=== PATIENT | female | born 1990 | race Caucasian/White ===

== ENCOUNTER 2017-02-25 21:39 | Inpatient (IN) | payer BC ==
[~2017-02-25] VITALS: Ht 172.7 cm; Wt 88.5 kg
[2017-02-25] MEDS ORDERED: LACTATED RINGER'S 1000ML 1,000 ML IV PRN (22:01)
[2017-02-25] MEDS ORDERED: LACTATED RINGER'S 1000ML 1,000 ML IV SCH (22:01)
[2017-02-25] MEDS ORDERED: PRENTAB26 PO (22:07)
[2017-02-25 22:08] VITALS: Ht 172.7 cm; Wt 88.5 kg
[2017-02-25 22:26] LABS: HEMATOCRIT 39.2 % (37-47); HEMOGLOBIN 13.9 g/dL (12.0-16.0); MEAN CELL VOLUME 88.3 fL (80-100); MEAN CORPUSCULAR HEMOGLOBIN 31.3 pg (25-34); MEAN CORPUSCULAR HGB CONC 35.5 g/dl (32-36); MEAN PLATELET VOLUME 11.2 fL (7.4-10.4); PLATELET COUNT 177 K/uL (130-400); RED CELL DISTRIBUTION WIDTH CV 13.2 % (11.5-14.5); RED CELL DISTRIBUTION WIDTH SD 42.6 fL (36.4-46.3); WHITE BLOOD COUNT 13.15 K/uL (4.8-10.8)
[2017-02-25 22:45] LABS: ALBUMIN 2.9 gm/dl (3.4-5.0); ALT/SGPT 20 U/L (12-78); AST/SGOT 22 U/L (15-37); BLOOD UREA NITROGEN 7 mg/dl (7-18); CALCIUM 8.8 mg/dl (8.5-10.1); CARBON DIOXIDE 20 mmol/L (21-32); GLUCOSE 102 mg/dl (70-99); POTASSIUM 3.4 mmol/L (3.5-5.1); SODIUM 137 mmol/L (136-145)
[2017-02-25 22:47] LABS: ALKALINE PHOSPHATASE 158 U/L (45-117); TOTAL PROTEIN 6.8 gm/dl (6.4-8.2)
[2017-02-25] MEDS ORDERED: BUPIVACAINE 0.25% 30 ML VIAL ONE (23:09)
[2017-02-25] MEDS ORDERED: FENTANYL CITRATE INJ 50 MCG/1 ML 2 ML VIAL ONE (23:09)
[2017-02-25] MEDS ORDERED: EpHEDrine SULFATE INJ 50 MG/ML AMP ONE (23:09)
[2017-02-25] MEDS ORDERED: FENTANYL 2MCG/ML ROPIV 1.25MG/ML 100ML BAG EPI ONE (23:10)
[2017-02-26] MEDS ORDERED: NALOXONE HCL INJ 1 MG in SODIUM CHLORIDE 0.9% 1000ML 1,000 ML IV PRN (00:12)
[2017-02-26] MEDS ORDERED: LACTATED RINGER'S 1000ML 500 ML IV PRN (00:12)
[2017-02-26] MEDS ORDERED: NALOXONE HCL INJ 0.4 MG/1 ML VIAL/CARP IV PRN (00:15)
[2017-02-26] MEDS ORDERED: DiphenhydrAMINE HCL 50 MG/ML VIAL IV PRN (00:15)
[2017-02-26] MEDS ORDERED: EpHEDrine SULFATE INJ 50 MG/ML AMP IV PRN (00:15)
[2017-02-26] MEDS ORDERED: NALBUPHINE HCL INJ 10 MG/ML AMP IV PRN (00:15)
[2017-02-26] MEDS ORDERED: ONDANSETRON INJ 2 MG/ML 2 ML VIAL IV PRN (00:15)
[2017-02-26] MEDS: FENTANYL 2MCG/ML ROPIV 1.25MG/ML 100ML BAG EPI PRN ×2 (03:09→05:39)
[2017-02-26] MEDS ORDERED: OXYTOCIN 30 UNITS/500ML NSS IV ONE (04:19)
[2017-02-26] MEDS ORDERED: OXYTOCIN 30 UNITS/500ML NSS IV PRN (07:00)
[2017-02-26] MEDS ORDERED: LANOLIN OINT EXT PRN (07:00)
[2017-02-26] MEDS ORDERED: MEASLES, MUMPS & RUBELLA VIRUS VIAL SQ. ONE (07:00)
[2017-02-26] MEDS ORDERED: BENZOCAINE 20% AER SPR 82.5 GM CAN EXT PRN (07:00)
[2017-02-26] MEDS ORDERED: SUPERCREAM 0.870 % 15GM JAR EXT PRN (07:00)
[2017-02-26] MEDS ORDERED: ACETAMINOPHEN 325 MG TAB PO PRN (07:00)
[2017-02-26] MEDS ORDERED: DIPHTHERIA/TETANUS/PERTUSSIS 0.5 ML SYR/VIAL IM. ONE (07:00)
--- NOTE | 2017-02-26 07:27 | DELIVERY SUMMARY ---
DATE OF OPERATION: 02/26/2017 DATE OF DELIVERY: 02/26/2017 TIME OF DELIVERY OF BABY: 06:11 a.m. TIME OF DELIVERY OF PLACENTA: 06:18 a.m. DETAILS OF DELIVERY: The patient was found to be fully dilated and desired to push. She pushed for about 1-1/2 hours and the head was over perineum with a tight hymenal ring band and patient was exhausted. After verbal consent was obtained, small right medial lateral episiotomy was opened and then the head was delivered without difficulty. Then shoulders were delivered with minimal traction. Baby was handed off to the mother where mouth and nose were suctioned. Cord was clamped x2 and cut at 1 minute delay and cord blood was obtained. The perineum and vagina were checked for lacerations. There was only small right medial lateral episiotomy which was opened earlier. No other lacerations were found and it was repaired with 2-0 Vicryl in a running locked fashion. Excellent hemostasis was achieved. The placenta was found to be in the vagina and delivered spontaneously intact and complete. Uterus was explored and found to be empty. Lower segment was cleared off all clots and debris. Uterine massage was done. EBL was 400. Rectal exam was done. Good external sphincter tone was noted and no sutures were found. Mom and baby tolerated the procedure well. Sponge, lap, needle and instrument counts were correct x2. Baby was a viable male . Apgars 8/9, weight is pending. No complications happened and I was present during whole procedure. I attest to the content of the Intraoperative Record and any orders documented therein. Any exception s are noted below.
--- NOTE | 2017-02-26 08:24 | Anesthesia Procedure Note ---
Anesthesia Epidural Removal Nt Date & Time Feb 26, 2017 at 08:23 Vital Signs Pain Intensity: 0.0 Notes Mental Status: alert / awake / arousable, participated in evaluation Nausea / Vomiting: adequately controlled Pain: adequately controlled Airway Patency, RR, SpO2: stable & adequate BP & HR: stable & adequate Hydration State: stable & adequate Neuraxial Anesthesia: was administered Anesthetic Complications: no major complications apparent, pt satisfied with anesthetic care Epidural: removed without complications, with tip intact
[2017-02-26 09:05] VITALS: BP 118/79; PULSE 82; TEMP 37.7; O2SAT 99
[2017-02-26] MEDS: FERROUS SULFATE 325 MG TAB PO SCH (09:28)
[2017-02-26] MEDS: PRENATAL VITAMIN TAB PO SCH (09:28)
[2017-02-26] MEDS: DOCUSATE SODIUM 100 MG CAP PO SCH ×2 (09:28→21:52)
[2017-02-26] MEDS: IBUPROFEN 600 MG TAB PO PRN ×2 (09:29→21:41)
[2017-02-26 12:15] VITALS: BP 114/69; PULSE 102; TEMP 36.8; O2SAT 96
[2017-02-26 16:00] VITALS: BP 121/84; PULSE 82; TEMP 36.5
[2017-02-26 19:30] VITALS: BP 118/76; PULSE 95; TEMP 36.7
[2017-02-26 23:45] VITALS: BP 130/86; PULSE 86; TEMP 36.5
[2017-02-27 04:00] VITALS: BP 130/82; PULSE 80; TEMP 36.7
[2017-02-27 07:20] VITALS: BP 116/70; PULSE 77; TEMP 36.7
[2017-02-27] MEDS: DOCUSATE SODIUM 100 MG CAP PO SCH ×2 (08:17→20:27)
[2017-02-27] MEDS: PRENATAL VITAMIN TAB PO SCH (08:17)
[2017-02-27] MEDS: FERROUS SULFATE 325 MG TAB PO SCH (08:17)
[2017-02-27 08:20] LABS: HEMOGLOBIN 10.1 g/dL (12.0-16.0)
--- NOTE | 2017-02-27 09:21 | OB/GYN Progress Note ---
[employer] Progress Note Date of Service Feb 27, 2017. Subjective conversation w/ patient, physical exam Ambulation: ambulating normally Voiding: no voiding problems Passing Gas: Yes Diet Tolerance: Regular Diet Feeding Type: Breast Feeding Objective Vital Signs Date Time Temp Pulse Resp B/P (MAP) Pulse Ox O2 Delivery O2 Flow Rate FiO2 02/27/17 07:20 36.7 77 18 116/70 (85) Room Air 02/27/17 07:20 Room Air 02/27/17 04:00 36.7 80 18 130/82 (98) Room Air 02/26/17 23:45 Room Air 02/26/17 23:45 36.5 86 18 130/86 (101) Room Air 02/26/17 19:30 Room Air 02/26/17 19:30 36.7 95 20 118/76 (90) Room Air 02/26/17 16:00 36.5 82 22 121/84 (96) 02/26/17 12:15 36.8 102 20 114/69 (84) 96 Room Air Physical Exam General Appearance: WELL-APPEARING, NO APPARENT DISTRESS Fundus: Firm Extremities: non-tender, normal inspection, no pedal edema Laboratory Results Last 24 Hours Test 02/27/17 08:08 Hemoglobin 10.1 g/dL Hematocrit 30.0 % Assessment and Plan Post- Day Number: 1 Continue Routine Care: tent d/c in AM
[2017-02-27] MEDS: IBUPROFEN 600 MG TAB PO PRN (10:51)
[2017-02-27 15:50] VITALS: BP 121/81; PULSE 97; TEMP 37.1; O2SAT 98
[2017-02-27] MEDS ORDERED: BISACODYL 5 MG TABEC PO SCH (20:00)
[2017-02-28] VITALS: BP 116/66; PULSE 79; TEMP 36.7
[2017-02-28] MEDS ORDERED: BISACODYL 10 MG SUPP PR PRN (07:00)
[2017-02-28 08:11] LABS: HEMATOCRIT 31.5 % (37-47); HEMOGLOBIN 10.8 g/dL (12.0-16.0); MEAN CELL VOLUME 90.5 fL (80-100); MEAN CORPUSCULAR HGB CONC 34.3 g/dl (32-36); PLATELET COUNT 195 K/uL (130-400); RED CELL DISTRIBUTION WIDTH CV 13.6 % (11.5-14.5); RED CELL DISTRIBUTION WIDTH SD 45.1 fL (36.4-46.3); WHITE BLOOD COUNT 11.98 K/uL (4.8-10.8)
[2017-02-28 08:30] VITALS: BP 120/80; PULSE 98; TEMP 36.6
[2017-02-28] MEDS: DOCUSATE SODIUM 100 MG CAP PO SCH (08:36)
[2017-02-28] MEDS: PRENATAL VITAMIN TAB PO SCH (08:36)
[2017-02-28] MEDS: FERROUS SULFATE 325 MG TAB PO SCH (08:36)
--- NOTE | 2017-02-28 09:41 | OB/GYN Progress Note ---
[employer] Progress Note Date of Service Feb 28, 2017. Subjective conversation w/ patient, physical exam Ambulation: ambulating normally Voiding: no voiding problems Passing Gas: Yes Diet Tolerance: Regular Diet Lochia: Moderate Review of Systems Constitutional: No fever, No chills, No sweats, No weight loss, No weakness, No fatigue, No problem reported Respiratory: No cough, No sputum, No wheezing, No shortness of breath, No dyspnea on exertion, No dyspnea at rest, No hemoptysis, No problem reported Cardiac: No chest pain, No orthopnea, No PND, No edema, No claudication, No palpitations, No problem reported Breast: No see HPI, No breast lump, No change in shape, No nipple discharge, No breast pain, No problem reported Abdomen: No pain, No nausea, No vomiting, No diarrhea, No constipation, No GI bleeding, No problem reported Female : No see HPI, No dysuria, No urinary frequency, No hematuria, No incontinence, No abnormal vaginal bleeding, No vaginal discharge, No problem reported Objective Vital Signs Date Time Temp Pulse Resp B/P (MAP) Pulse Ox O2 Delivery O2 Flow Rate FiO2 02/28/17 00:00 Room Air 02/28/17 00:00 36.7 79 18 116/66 (83) 02/27/17 15:50 98 Room Air 02/27/17 15:50 37.1 97 16 121/81 (94) 98 Room Air Physical Exam General Appearance: WELL-APPEARING, WD/WN, NO APPARENT DISTRESS Respiratory/Chest: chest non-tender, lungs clear, normal breath sounds Cardiovascular: regular rate, rhythm, no edema, no gallop Abdomen: normal bowel sounds, non tender, soft Fundus: Firm Incision Description: Clean, Dry & Intact Extremities: normal range of motion, non-tender, normal inspection Laboratory Results Last 24 Hours Test 02/28/17 07:49 White Blood Count 11.98 K/uL Red Blood Count 3.48 M/uL Hemoglobin 10.8 g/dL Hematocrit 31.5 % Mean Corpuscular Volume 90.5 fL Mean Corpuscular Hemoglobin 31.0 pg Mean Corpuscular Hemoglobin Concent 34.3 g/dl RDW Standard Deviation 45.1 fL RDW Coefficient of Variation 13.6 % Platelet Count 195 K/uL Mean Platelet Volume 11.0 fL Assessment and Plan Post- Day Number: 2 Continue Routine Care: PPD #2 pt doing well no complaints disch home with instructions
[2017-02-28] MEDS ORDERED: FRRS300 PO (09:42)
[2017-02-28] MEDS ORDERED: MTR600X PO (09:42)
[2017-02-28] MEDS ORDERED: CLC100 PO (09:42)
--- NOTE | 2017-02-28 09:43 | Discharge Instructions ---
Discharge Instructions Date of Service Feb 28, 2017. Admission Reason for Admission: Check Labor Discharge Discharge Diagnosis / Problem: Discharge Goals Goal(s): Routine recovery after delivery Activity Recommendations Activity Limitations: as noted below ACTIVITY RECOMMENDATIONS: * Gradual return to full activity over the next 2-3 weeks. * No lifting - nothing heavier than baby over the next 2-3 weeks. * Do not engage in vigorous exercise, sexual activity or sports until cleared by your physician. * Do not drive or operate any motorized equipment until cleared by your physician. * You may shower/bathe daily. BREAST CARE: If you are not breast feeding: * Wear a supportive bra 24 hours a day for one to two weeks. * Avoid stimulating your breasts and nipples as much as possible during the first few weeks after delivery. * When taking a shower, have the warm water hit your back, not breasts. * When your breasts feel full, apply ice packs. Usually three to four times a day helps ease the discomfort. * Take a mild pain medication (Tylenol/Motrin) when you are uncomfortable. If breast feeding: * Use breast milk to lubricate nipples. Lansinoh cream may be used for sore nipples. You do not need to remove cream prior to breast feeding. If using a different brand of cream, check the label for directions regarding removal of cream prior to nursing. * Wear a supportive bra. * If having problems with breasts or breast feeding, call a curriculum consultant or your health care provider. EPISIOTOMY CARE: After delivery, if you have an episiotomy (stitches), the following steps will ease discomfort and aid healing. * For the first 24 hours after delivery, place ice packs next to your episiotomy to help reduce swelling. * After the first 24 hour-period, sitz baths, either portable or in the tub, are suggested. A shower with a shower arm sprayed over the episiotomy may be comforting. * Geraldine care should be done after each voiding and bowel movement. Squirt warm water from a plastic bottle over the perineum (region of the body between the anus and urinary opening) and pat dry. * Use Dermoplast to ease discomfort. Shake container. [place] directly over the episiotomy. * Place a Tucks on a clean sanitary pad next to your episiotomy. OVER THE COUNTER MEDICATION: * For discomfort or pain, you may use Acetaminophen (Tylenol), Ibuprofen (Advil ), or Naproxen (Aleve) following the package directions. * For constipation you may use Colace following the package directions. SPECIAL CARE INSTRUCTIONS: When you are discharged from the hospital, it is important for you to follow the instructions listed below: * During the first week at home, you should be able to care for yourself and your baby. In addition, the usual light household activities are encouraged. * Limit your activities to the way you feel. Do not try to clean the house or move furniture. Be sensible. * If you actively engage in sports and have done so up until the time of your delivery, you may resume these activities as soon as you feel able. This may take up to one month or even longer. Use good judgment. * Continue to take your vitamins for at least six weeks after the of your baby. * Your diet need not be limited unless you were on a special diet before your delivery. Breast-feeding mothers need around 2500 calories per day and at least 64-80 ounces of fluid per day (8 to 10 glasses). * You should eat foods from the four major food groups. Crash diets or fad diets are to be avoided. Eating lean meats, fresh fruits and vegetables, low-fat dairy products, high fiber foods and a regular exercise program, will help you get back to your pre- weight without putting your health at risk. * Constipation is sometimes a problem after delivery. Take a mild laxative as needed. If breast feeding, Milk of Magnesia is acceptable to use. You may use a suppository or Fleets enema if no episiotomy. * A daily shower or tub bath is suggested. Be sure to thoroughly and gently dry the perineum. * A bloody vaginal discharge will usually continue until around four weeks post . A small amount of bleeding may continue for as long as six weeks. Vaginal discharge changes from the bright red bleeding after delivery to pink then brownish and finally yellowish-pink before becoming white and disappearing. * Bleeding may increase with activity. Your first period may come in 4-8 weeks. If you are breast feeding, your period may be delayed even longer. * [place] (sex) can begin whenever both you and your partner feel comfortable and do not have any form of genital infection. It is recommended that you wait until after your return appointment and discuss with your physician. If you have questions, please talk to your health care practitioner. A condom should be used to prevent infection and . * Foreplay, gentle intercourse and lubrication is very important the first several times to prevent pain. A water-based lubricant such as K-Y jelly or Astroglide may be used. * Tampons may be used six weeks after delivery. * Douching should be avoided for 6 weeks after delivery. * If you have RH negative blood and your baby is RH positive, you will receive RHOGAM by injection prior to discharge. The nurse will give you a card to keep with you that has the date and place that you received RHOGAM after delivery. * During your care, you had a Rubella screen done to check for the presence of rubella antibodies in your blood. If your test was negative, you will receive a Rubella vaccine prior to discharge. This vaccine may cause a fever, soreness at the injection site and flu-like symptoms. If these symptoms persist, notify your health care practitioner. is not advised for three months after a Rubella vaccine. There is a higher chance of having a baby with defects if conceived within three months of getting the vaccine. * If you were discharged 24 hours from delivery or before 48 hours: Visiting nurses will come to your home 48 hours after discharge to assess you and your baby. The visiting nurse will meet with you while you are in the hospital to arrange a time and get directions to your home. * Verbalizes understanding of car seat law as reviewed with patient nursing. * Car Seat hand-out given and reviewed with patient by nursing. * Shaken baby information reviewed with patient by nursing. Call you doctor if: * Heavy bleeding (saturating several pads an hour) or passing clots the size of your fist. * A fever >101 degrees F (38.3 degrees C) on two occasions four hours apart and/or chills. * Unusual pain in the pelvic or vaginal areas. * "Baby Blues" lasting longer than two weeks. If you have any questions or concerns, call your health care practitioner at . FOLLOW-UP VISIT: * Please call the office at to schedule a 6 week examination. It is important you keep this appointment. * It is important for you to make arrangements for either yearly or twice yearly check-ups thereafter. . Current Hospital Diet Patient's current hospital diet: Regular OB Diet Discharge Diet Recommended Diet: Regular Diet Pending Studies Studies pending at discharge: no Medical Emergencies . Who to Call and When: Medical Emergencies: If at any time you feel your situation is an emergency, please call 911 immediately. . Non-Emergent Contact Non-Emergency issues call your: Specialist . . "Provider Documentation" section prepared by Feliciano Reza. . VTE Core Measure Inpt VTE Proph given/why not?: Treatment not indicated
[2017-02-28 14:40] VITALS: BP_DIAS 80; PULSE 98; TEMP 36.6
== END 2017-02-28 14:45 | disposition home or self-care (01) | DRG 775 ==
LOC: C.LD 21:39 → C.OPB 21:39 → C.LD 22:15 → C.OBG 02-26 09:09
PROVIDERS: ADMIT Obstetrics & Gynecology; ATTEND Obstetrics & Gynecology
PROC: 0W8NXZZ Division of Female Perineum, External Approach (ICD-10-PCS; principal; 2017-02-26)
PROC: 10E0XZZ Delivery of Products of Conception, External Approach (ICD-10-PCS; principal; 2017-02-26)
DX: O75.81 Maternal exhaustion complicating labor and delivery (principal); Z3A.39 39 weeks gestation of pregnancy; Z37.0 Single live birth

== ENCOUNTER 2019-11-16 11:02 | Inpatient (IN) ==
[2019-11-16] MEDS ORDERED: miSOPROStoL 50 MCG TAB PO ONE (12:05)
[2019-11-16] MEDS ORDERED: OXYTOCIN 30 UNITS/500 ML BAG IV PRN ×2 (12:05→21:02)
[2019-11-16 12:26] LABS: Hematocrit (blood only) 37.2 % (37-47); Hemoglobin 12.3 g/dL (12.0-16.0); Mean Corpuscular Hemoglobin 28.3 pg (25-34); Mean Corpuscular Volume 85.7 fL (80-100); Mean Platelet Volume 11.4 fL (7.4-10.4); Platelet Count 177 K/uL (130-400); RDW Coefficient of Variation 15.8 % (11.5-14.5); RDW Standard Deviation 49.6 fL (36.4-46.3); Red Blood Count 4.34 M/uL (4.2-5.4); White Blood Count 8.71 K/uL (4.8-10.8)
[2019-11-16 12:27] LABS: Mean Corpuscular Hgb Conc 33.1 g/dL (32-36)
[2019-11-16] MEDS ORDERED: DINOPROSTONE 10 MG INSERT PV ONE (13:15)
[2019-11-16] MEDS ORDERED: ACETAMINOPHEN 325 MG TAB PO STA (15:57)
[2019-11-16] MEDS: LACTATED RINGER'S 1,000 ML IV PRN ×2 (18:04→18:05)
[2019-11-16] MEDS ORDERED: ePHEDrine sulfate 50 MG/ML AMP ONE (19:19)
[2019-11-16] MEDS ORDERED: fentaNYL 2MCG/ML ROPIV 1.25MG/ML 100 ML BAG EPI ONE (19:20)
[2019-11-16] MEDS ORDERED: BUPIVACAINE 0.25% 30 ML VIAL ONE (19:20)
[2019-11-16] MEDS ORDERED: fentaNYL citrate 100 MCG/2 ML VIAL ONE (19:20)
[2019-11-16] MEDS ORDERED: NALOXONE HCL 0.4 MG/1 ML VIAL/CARP IV PRN (19:26)
[2019-11-16] MEDS ORDERED: DiphenhydrAMINE HCL 50 MG/ML VIAL IV PRN (19:26)
[2019-11-16] MEDS ORDERED: ONDANSETRON INJ 2 MG/ML 2 ML VIAL IV PRN (19:26)
[2019-11-16] MEDS ORDERED: NALOXONE HCL 1 MG in SODIUM CHLORIDE 0.9% 1000ML 1,000 ML IV PRN (19:26)
[2019-11-16] MEDS ORDERED: PROMETHAZINE HCL 25 MG in SODIUM CHLORIDE 0.9% 50 ML IV PRN (19:26)
[2019-11-16] MEDS ORDERED: ePHEDrine sulfate 50 MG/ML AMP IV PRN (19:26)
[2019-11-16] MEDS ORDERED: fentaNYL 2MCG/ML ROPIV 1.25MG/ML 100 ML BAG EPI PRN (19:26)
--- NOTE | 2019-11-16 19:26 | Anesthesiology Consultation ---
Date of Service November 16, 2019 Assessment & Plan ASA ASA2 Proposed Anesthesia Anesthesia Type: Labor Epidural Risk / Benefits Reviewed With: PT / POA / Parent / Guardian, Accepts Plan and Informed Consent Obtained History Height/Weight Height: 5 ft 8 in Weight: 90.265 kg Allergies Allergy/AdvReac Type Severity Reaction Status Date / Time No Known Allergies Allergy Unverified 02/25/17 22:08 Medications Home Medications Medication Instructions Recorded Confirmed Last Taken prenat.vits,eugenio,swi-yujt-rsikj 1 tab PO DAILY 11/16/19 11/16/19 11/16/19 [ Vitamin] 0800 Active Medications Generic Name Dose Route Start Last Admin Trade Name Freq PRN Reason Stop Dose Admin Lactated Ringer's 1,000 mls @ 125 mls/hr 11/16/19 12:05 11/16/19 18:05 Lr IV 11/18/19 12:04 125 mls/hr .Q8H PRN Administration L&D Protocol Protocol Ropivacaine 100 ml 11/16/19 19:26 11/16/19 19:58 Fentanyl 2mcg/Ml Ropiv 1.25mg/Ml 100 Ml Bag EPI 11/17/19 19:25 100 ml PRN PRN Administration Pain R/T Labor Protocol Exercise / Class Metabolic Activity II 4-5 Yardwork/Stairs/Walk up hill Past Surgical History Surgical History (Updated 11/16/19 @ 11:52 by Amada Velasquez RN) [place] teeth extracted Past Anesthesia History No Hx of Anesthesia Complications and No Family Hx of Anesthesia Complications History of PONV No Hx of PONV and No Hx of Motion Sickness Social History Smoking Status: Former smoker Hx Alcohol Use: No Hx Substance Use: No substance use type: does not use Review of Systems denies fever/cough/ colds/ chest pain/ SOB/ SADIQ Constitutional: no fever and no chills Respiratory: no cough and no dyspnea denies SADIQ Cardiovascular: no chest pain and no dyspnea on exertion Physical Exam Vital Signs Last Vital Signs Temp 36.7 C 11/16/19 11:52 Pulse 92 H 11/16/19 20:04 Resp 18 11/16/19 11:52 BP 132/70 11/16/19 20:04 Pulse Ox 97 11/16/19 20:04 ENMT Mouth: no TMJ abnormality and no dentition abnormality Thyromental Distance: > or= 3.5 Finger Breadths Mallampati Class: II Neck neck extension not limited Respiratory normal respiratory effort; no respiratory distress Auscultation: lungs clear to auscultation bilaterally Cardiovascular Rate/Rhythm: regular rate and regular rhythm Neurologic moves all extremities Psychiatric Orientation: alert and oriented x 3 Testing Laboratory Results 11/16/19 12:15
[2019-11-16] MEDS ORDERED: ACETAMINOPHEN 325 MG TAB PO PRN (21:02)
[2019-11-16] MEDS ORDERED: OXYCODONE/ACETAMINOPHEN 5mg/325mg TAB PO PRN (21:02)
[2019-11-16] MEDS ORDERED: DIPHTHERIA/TETANUS/PERTUSSIS 0.5 ML SYR/VIAL IM ONE (21:02)
[2019-11-16] MEDS ORDERED: SUPERCREAM 0.870% 15 GM JAR EXT PRN (21:02)
[2019-11-16] MEDS ORDERED: bisacodyL 10 MG SUPP PR PRN (21:02)
[2019-11-16] MEDS ORDERED: ACETAMINOPHEN W/CODEINE #3 1 TAB PO PRN (21:02)
[2019-11-16] MEDS ORDERED: HYDROCORTISONE ACETATE 25 MG SUPP PR PRN (21:02)
--- NOTE | 2019-11-16 21:11 | Anesthesia Procedure Note ---
Date of Service November 16, 2019 Anesthesia Post Epidural Note Vital Signs Vital Signs: Temp Pulse Resp BP Pulse Ox 36.8 C 88 18 143/62 H 98 11/16/19 19:20 11/16/19 21:09 11/16/19 20:36 11/16/19 21:09 11/16/19 20:34 Pain Intensity Lower Abdomen: Pain Intensity: 8 Notes Mental Status: alert / awake / arousable and participated in evaluation Patient Amnestic to Procedure: Yes Nausea / Vomiting: adequately controlled Pain: adequately controlled Airway Patency, RR, SpO2: stable & adequate BP & HR: stable & adequate Hydration State: stable & adequate Anesthetic Complications: no major complications apparent and Pt Satisfied with anesthetic care
[2019-11-16] MEDS: BENZOCAINE 20% AER SPR 82.5 GM CAN EXT PRN (23:15)
[2019-11-16] MEDS: IBUPROFEN 600 MG TAB PO PRN (23:16)
--- NOTE | 2019-11-17 02:04 | Delivery Summary ---
DATE OF OPERATION: 11/16/2019 The patient is a 2, para 2, blood type is O positive, group B strep negative. Was admitted at 40 weeks and 6 days, evaluated in the [facility] office, had decreased movement. Had a nonreactive NST and a biophysical profile of 6. She was admitted, placed on a monitor. The heart rate looked good. She had a good reactivity. She was given a Cervidil tape. With the Cervidil tape, she went into labor. She began to have frequent contractions, they got stronger. She eventually requested an epidural. By the time the epidural was in, checked her, she was like 7-8 cm. Tape was removed. She quickly went to full dilatation. After rupture of membranes, pushed out a live female via direct occiput anterior position over an intact perineum. Infant was suctioned through the mouth and the nose. Shoulders were delivered without difficulty. Cord was allowed to pulse for 1 minute, then clamped, cut by the father. Cord blood was taken. Placenta was removed intact. She had some superficial periurethral lacerations of labia minora on the right side, two of them. Each was repaired with a running 3-0 chromic. They were bleeding prior to being sutured and she had a small open laceration at 7 o'clock in the vaginal opening. This was repaired with a running 3-0 chromic and she had a first-degree laceration. First-degree laceration was repaired with a Vicryl. Initial suture was placed above the vaginal defect. Vaginal mucosa was approximated out and to beyond the hymenal ring. Deep suture was used to approximate the bulbocavernosus muscle. A separate deep suture was used to approximate the perineal body. Running subcuticular suture was used to approximate the perineal skin edges. Following this, a red rubber Howell was used to empty the bladder, there was about 200 mL urine. Hemostasis was excellent. ESTIMATED BLOOD LOSS: 200 mL. I attest to the content of the Intraoperative Record and any orders documented therein. Any exception s are noted below.
[2019-11-17 06:43] LABS: Hematocrit (blood only) 35.2 % (37-47); Hemoglobin 11.3 g/dL (12.0-16.0); Mean Corpuscular Hemoglobin 27.8 pg (25-34); Mean Corpuscular Hgb Conc 32.1 g/dL (32-36); Mean Corpuscular Volume 86.7 fL (80-100); Mean Platelet Volume 11.3 fL (7.4-10.4); Platelet Count 145 K/uL (130-400); RDW Coefficient of Variation 16.2 % (11.5-14.5); RDW Standard Deviation 50.8 fL (36.4-46.3); Red Blood Count 4.06 M/uL (4.2-5.4)
[2019-11-17] MEDS ORDERED: PRENATAL VITAMIN 1 TAB PO SCH (08:00)
[2019-11-17] MEDS ORDERED: FERROUS SULFATE 325 MG TAB PO SCH (08:00)
[2019-11-17] MEDS: DOCUSATE SODIUM 100 MG CAP PO SCH ×2 (08:32→20:08)
[2019-11-17] MEDS: IBUPROFEN 600 MG TAB PO PRN ×2 (08:33→20:08)
[2019-11-17] MEDS: BENZOCAINE 20% AER SPR 82.5 GM CAN EXT PRN (08:33)
--- NOTE | 2019-11-17 10:19 | Obstetrical Progress Note ---
Date of Service November 17, 2019 Assessment & Plan (1) Normal course: PPd #1 Pt doing well Pt wishes to be disch home Subjective Ambulation: ambulating normally Voiding: no voiding problems Passing Gas:: Yes Diet Tolerance:: regular diet Lochia:: Small Feeding Type:: breast feeding Review of Systems All systems reviewed & are unremarkable except as noted in HPI & below Physical Exam Constitutional WD/WN, vitals as above well developed and well nourished Eyes PERRL, conjunctivae normal, anicteric sclerae Neck trachea midline, no thyromegaly Respiratory normal respiratory effort, lungs clear to auscultation Auscultation: no crackles, no rales and no wheezes Cardiovascular RRR, no murmur, no edema Gastrointestinal (Abdomen) normal bowel sounds, soft, nontender, no hepatosplenomegaly Uterus is below umbilicus Musculoskeletal no cyanosis or clubbing, extremities motor strength 5/5 Skin no rashes, warm and dry Neurologic patellar DTR's 2+ bilat, sensation intact Psychiatric A+Ox3, euthymic affect Genitourinary normal external appearance Results & Data ([facility]) Vital Signs (Past 12 Hours) Vital Signs Temp Pulse Pulse Resp BP BP Pulse Ox 11/17/19 07:55 36.5 C 64 16 127/72 11/17/19 03:35 36.5 C 65 18 120/71 11/16/19 23:45 37.2 C 72 18 122/72 98 11/16/19 23:22 75 127/67 11/16/19 23:10 18 11/16/19 22:40 18 11/16/19 22:35 81 136/68
[2019-11-17] MEDS ORDERED: bisacodyL 5 MG TABEC PO SCH (20:00)
== END 2019-11-17 22:10 | disposition home or self-care (01) | DRG 807 ==
LOC: 4S1 11:02 → OPB 11:02 → 4S1 11:04 → 4S2 11-17 00:11